=== PATIENT | female | born 1970 | race Caucasian/White ===

== ENCOUNTER → 2016-08-30 11:04 | Day surgery (SDC) | payer BC ==
[~2016-08-30 11:04] MED LIST: Buffered Lidocaine 1% SYR 3ML* 3 ML/SYR SYRINGE INTRADERM ONE; Buffered Lidocaine 1% SYR 3ML* 3 ML/SYR SYRINGE ONE; Bupivacaine 0.25% SDV* 30 ML ONE; Dexamethasone IV* 4 MG/ML 1 ML (4 MG) ONE; Lidocaine 2% PF * 5 ML VIAL ONE; Midazolam* 1 MG/ML 2 ML VIAL (2 MG) ONE; Ondansetron INJ* 2 MG/ML VIAL ONE; Propofol* 10 MG/ML 20 ML BTL IV PUSH ONE; ceFAZolin 2 GM PREMIX (*) 2 GM/50 ML BAG IVPB ONE; fentaNYL* 50 MCG/ML 2 ML VIAL (100 MCG VIAL) ONE; oxyCODONE/Acetamin 5/325 MG* TAB ONE
[2016-08-30 15:39] VITALS: BP 142/89
--- NOTE | 2016-08-30 21:00 | OP ---
DATE OF OPERATION: 08/30/16 [facility] DATE OF : 68 SURGEON: Marylou Carlin MD [employer] SCIENTIST: LAWSON Meyer. An assistant manager was needed for the entirety of this case due to positioning, retraction, and closure. ANESTHESIOLOGIST: Dr. Arredondo. ANESTHESIA: General. 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 OPERATIVE PROCEDURES: Bilateral open anterolateral compartment release with removal of intramuscular lipoma. SPECIMENS: None. ESTIMATED BLOOD LOSS: 50 cc. COMPLICATIONS: None. INDICATIONS: Sandrine Leyva is a pleasant 45-year-old female who presented to me with bilateral lower extremity exercise-induced compartment syndrome. This is present for a number of years. She also had an incidental lipoma on the left side which bothered her significantly with swollen and shrinking size based on her compartment pressures. After obtaining compartment pressure testings done by our nonoperative colleagues which are listed in the preoperative H and P, the patient has elected to proceed with surgery presenting for release of the compartments as well as possible resection of the lipoma intramuscularly. Risks and benefits were discussed at length including, but not limited to bleeding, infection, damage to nerves, vessels, surrounding structures, wound not healing, persistent pain, need for further surgery, risk of anesthesia, risk of DVT, and incomplete relief of symptoms. The patient agreed to surgery. DESCRIPTION OF PROCEDURE: The patient was greeted in the preoperative area by the attending surgeon. The correct extremity was marked and consent was confirmed. The patient was brought back to the operating suite where she was placed in supine position on the operating table. She then underwent general anesthesia and endotracheal intubation after which bilateral thigh tourniquets were placed nonsterilely. The legs were prepped and draped in the usual sterile fashion with a prescrub of chlorhexidine soap and water and a final prep of ChloraPrep. After appropriate surgical pause indicating site, side, procedure, and administration of antibiotics, the right leg was addressed first. An incision approximately 15 cm was made just 2 fingerbreadths proximal to the fibula. The skin was sharply incised using a 15 blade. Electrocautery was used to maintain hemostasis. The Metzenbaum scissors were used for subcutaneous dissection until the fascia was exposed and the Joaquin was used to elevate. The perforating bleeders were then cauterized carefully. Care was taken to preserve as many of the bleeders as possible. Distally, the dissection was taken with care to first look for the superficial peroneal nerve. This was identified and protected. The fascia was exposed on the anterior and posterior to make sure that there was no chance of damaging the nerve. Once the fascia was completely exposed, a 15 blade was used to make a small marlee in the fascia. This was transversed between the anterior and lateral compartments. Then, using the Metzenbaum scissors with tension on the fascia, the fascia was then incised beginning laterally and proximally. Once this was secured then, the anterior compartment was released proximally using the Metzenbaum scissors with care not to close the scissors. This was then done again for the lateral compartment beginning proximally. After this was done with tension on the fascia, the anterior compartment was first released with visualization at all times of the nerve and care to not damage the nerve. Once this was fully released by palpation, attention was directed to the lateral compartment and this was then released distally in the same technique. The wound was copiously irrigated. The nerve was visualized once again and found to be intact. All hemostasis was obtained. The skin was then closed with 2-0 Prolene in an interrupted fashion. Attention was directed to the left side. A similar incision was made about 15 cm in length just 2 fingerbreadths anterior to the fibula. An incision was made with a 15 blade. The soft tissues were carefully dissected using the Metzenbaum scissors. Electrocautery was used for hemostasis. The fascia was exposed first proximally using the Joaquin and then distally with care to identify the superficial peroneal nerve. This was identified and found to be intact. The transverse incision again was made proximally. The anterior compartment was released first proximally using the Metzenbaum scissors and then, the lateral compartment was released proximally as well. Finally, with visualization of the nerve at all times, the anterior compartment was released distally with care to protect and not damage the superficial peroneal nerve, and then finally, the lateral compartment was released in a similar fashion. At this point, using blunt dissection with the finger, the tendons were examined. There was a small soft tissue lipoma which was about 1 cm x 3 cm and it was irregularly shaped longitudinally. This was carefully removed. Once this was done, no further masses were present. The wounds were copiously irrigated. The compartments were soft and the wound was closed with 2-0 Prolene in an interrupted fashion. Sterile dressings were applied. Each wound was injected with 20 cc of 0.25% Marcaine. Sterile dressings were applied as well as thigh high GABI stockings. She was awoken from anesthesia and transferred to the PACU in stable condition. POSTOPERATIVE PLAN: She will be weightbearing as tolerated. She will follow the postoperative protocol that was already given to her. She will be discharged on pain medication, antibiotics as well as aspirin for DVT prophylaxis. I will see her back in the office in 10 to 14 days. [id number]/CPS #: [id number] HARPER
== END | disposition home or self-care (01) ==
LOC: OREAST 11:04
PROVIDERS: ATTEND Orthopaedic Surgery
DX: M79.A22 Nontraumatic compartment syndrome of left lower extremity (principal); M79.A21 Nontraumatic compartment syndrome of right lower extremity; D17.9 Benign lipomatous neoplasm, unspecified
CPT/HCPCS: A9270-GY; J0690; J1100; J2250; J2405; J2704; J3010

== ENCOUNTER 2018-03-23 04:20 | Emergency (ER) | payer BC ==
[2018-03-23] MEDS ORDERED: Albuterol/Ipratropium NEB.SOL* Albuterol 2.5 MG/Ipratropium 0.5 MG 3 ML INH ONE (04:33)
[2018-03-23] MEDS ORDERED: predniSONE TAB* 20 MG PO ONE (04:33)
[2018-03-23] MEDS ORDERED: Codeine TAB* 30 MG PO ONE (04:34)
--- NOTE | 2018-03-23 04:42 | ED ---
Respiratory - HPI Summary HPI Summary: This is scribe Brandon Rocha documenting for attending Adam Henriquez MD. This patient is a 47 year old F presenting to [facility] with a chief complaint of an intermittent barky cough since January. The cough has sometimes been productive with green mucous and sometimes with clear mucous. Patient reports SOB. She visited [facility] on 03/20/2018, and they gave her a nebulizer for allergies. She is also now taking Jessica. She took Delsym 12 hour at 18:00 on 03/22/2018 which did not alleviate her cough. Patient reports that the cough coincided with her beginning an exercise regime and that she has a hx of chronic coughing that coincides with her exercising. Patient reports no history of smoking. I, Dr. Henriquez, personally performed the services described in this documentation as scribed in my presence and it is both accurate and complete. - History of Current Complaint Chief Complaint: EDGeneral Stated Complaint: COUGH Hx Obtained From: Patient Onset/Duration: Lasting Weeks - Since January, Still Present Initial Severity: Moderate Current Severity: Moderate Pain Intensity: 0 Character: Wheezing, Cough (Productive) - Sometimes green mucous, sometimes clear mucous Sputum Color: Clear, Green Aggravating Factor(s): Other - Exercise Associated Signs and Symptoms: SOB - Allergy/Home Medications Allergies/Adverse Reactions: Allergies Allergy/AdvReac Type Severity Reaction Status Date / Time amoxicillin [From Augmentin] Allergy Rash Verified 03/23/18 04:25 clavulanic acid Allergy Rash Verified 03/23/18 04:25 [From Augmentin] PMH/Surg Hx/FS Hx/Imm Hx Endocrine/Hematology History: Denies: Hx Diabetes Cardiovascular History: Denies: Hx Hypertension, Hx Pacemaker/ICD GI History: Reports: Hx Gastroesophageal Reflux Disease - CONTROL WITH MEDS History: Reports: Hx Kidney Stones - 2 YEARS AGO - SHE PASSED IT Sensory History: Reports: Hx Contacts or Glasses - GLASSES Denies: Hx Hearing Aid Opthamlomology History: Reports: Hx Contacts or Glasses - GLASSES Neurological History: Reports: Hx Headaches Psychiatric History: Denies: Hx Panic Disorder - Surgical History Surgery Procedure, Year, and Place: ENDOSCOPIES, LAST ONE 2016 - [facility]. 2009 UTERINE ABLATION, [facility] Hx Anesthesia Reactions: No Infectious Disease History: No Infectious Disease History: Denies: Traveled Outside the [place] in Last 30 Days - Family History Known Family History: Positive: Cardiac Disease, Other - Cancer. B-cell Non- Hodgkin's Lymphoma - Social History Lives: With Family Alcohol Use: None Substance Use Type: Reports: None Smoking Status (MU): Never Smoked Tobacco Review of Systems Negative: Fever Positive: Shortness Of Breath, Cough - Productive cough with sometimes green and sometimes clear mucous All Other Systems Reviewed And Are Negative: Yes Physical Exam - Summary Physical Exam Summary: VITAL SIGNS: Reviewed. GENERAL: Patient is a well-developed and nourished FEMALE who is lying comfortable in the stretcher. Patient is not in any acute respiratory distress. HEAD AND FACE: No signs of trauma. No ecchymosis, hematomas or skull depressions. No sinus tenderness. EYES: PERRLA, EOMI x 2, No injected conjunctiva, no nystagmus. EARS: Hearing grossly intact. Ear canals and tympanic membranes are within normal limits. MOUTH: Oropharynx within normal limits. NECK: Supple, trachea is midline, no adenopathy, no JVD, no carotid bruit, no c- spine tenderness, neck with full ROM. CHEST: Symmetric, no tenderness at palpation LUNGS: Bilateral respiratory wheezes. CVS: Regular rate and rhythm, S1 and S2 present, no murmurs or gallops appreciated. ABDOMEN: Soft, non-tender. No signs of distention. No rebound no guarding, and no masses palpated. Bowel sounds are normal. EXTREMITIES: FROM in all major joints, no edema, no cyanosis or clubbing. NEURO: Alert and oriented x 3. No acute neurological deficits. Speech is normal and follows commands. SKIN: Dry and warm Triage Information Reviewed: Yes Vital Signs On Initial Exam: Initial Vitals Temp Pulse Resp BP Pulse Ox 97.7 F 86 24 150/131 96 03/23/18 04:20 03/23/18 04:20 03/23/18 04:20 03/23/18 04:20 03/23/18 04:20 Vital Signs Reviewed: Yes Diagnostics - Vital Signs Vital Signs Temp Pulse Resp BP Pulse Ox 03/23/18 04:20 97.7 F 86 24 150/131 96 - Laboratory Lab Statement: Any lab studies that have been ordered have been reviewed, and results considered in the medical decision making process. - Radiology Chest X-Ray Radiology Interpretation Completed By: ED Physician - 05:00. No acute processes. Read by ED Physician. Pending offical report. Re-Evaluation - Re-Evaluation 1 Re-Evaluation Time: 05:49 Change: Improved Comment: Patient feels better, no more wheezing, lungs are clear. Disposition - Course Assessment/Plan: Patient presented with an intermittent barky cough since January. Patient now feels better, no more wheezing, lungs are clear. Patient will be sent home with dx of asthma. - Diagnoses Provider Diagnoses: Asthma Discharge - Sign-Out/Discharge Documenting (check all that apply): Patient Departure - D/C - Discharge Plan Condition: Stable Disposition: HOME Patient Education Materials: Asthma (ED) Referrals: No Primary Care Phys,NOPCP [Primary Care Provider] - (Follow up with [facility] in 1-2 days.) Additional Instructions: RETURN TO THE EMERGENCY DEPARTMENT FOR CHANGING OR WORSENING SYMPTOMS. FOLLOW UP WITH [facility] IN 1-2 DAYS.
[2018-03-23] MEDS ORDERED: Albuterol 2.5 MG/3 ML NEB.SOL* (0.083%) INH SCH (05:00)
[2018-03-23] MEDS ORDERED: Albuterol 2.5 MG/3 ML NEB.SOL* (0.083%) INH ONE (05:26)
[2018-03-23 06:12] VITALS: BP 122/72
--- NOTE | 2018-03-23 07:23 | RAD ---
INDICATION: Cough COMPARISON: November 01, 2010 TECHNIQUE: An AP portable view obtained at 0440 hours is submitted. FINDINGS: Bones/Soft Tissues: There are no acute bony findings. Cardiomediastinal: The cardiomediastinal silhouette is normal. Lungs: There are no infiltrates. Pleura: There are no pleural effusions. Other: None IMPRESSION: NO ACTIVE DISEASE.
== END 2018-03-23 06:12 | disposition home or self-care (01) ==
LOC: ED 04:20
DX: J45.909 Unspecified asthma, uncomplicated (principal); K21.9 Gastro-esophageal reflux disease without esophagitis; Z79.899 Other long term (current) drug therapy; Z88.3 Allergy status to other anti-infective agents
CPT/HCPCS: 71045; 99283; A9270-GY; J7512